=== PATIENT | female | born 1990 | race African-American/Black ===

== ENCOUNTER 2021-01-23 17:27 | Emergency (ER) | payer OTHER, SELFPAY ==
[~2021-01-23 17:27] MED LIST: Iopamidol-370 76% 500 ML 1 ML ONE
[2021-01-23] MEDS ORDERED: Ketorolac Tromethamine 30 MG/ML VIAL ONE (18:38)
[2021-01-23] MEDS ORDERED: Lorazepam 2 MG/ML VIAL ONE (18:38)
[2021-01-23 18:55] LABS: #Basophils 0.1 thou/uL (0.0-0.2); #Monocytes 0.6 thou/uL (0.11-0.59); #Neutrophils 3.1 thou/uL (1.40-6.50); %Eosinophils 0.7 % (0.0-10.0); %Monocytes 9.7 % (0.0-10.0); %Neutrophils 53.6 % (42.0-75.0); Hemoglobin 13.8 g/dL (12.0-16.0); Mean Corpuscular HGB CONC 33.9 g/dL (32.0-36.0); Mean Corpuscular Hemoglobin 28.5 pg (27.0-31.0); Mean Corpuscular Volume 84.2 fL (78.0-98.0); Platelet Count 225 thou/uL (130-400); RBC Distribution Width 11.4 % (11.5-14.5); Red Blood Cell (RBC) Count 4.82 mill/uL (4.20-5.40); White Blood Cell (WBC) Count 5.8 thou/uL (4.8-10.8)
[2021-01-23 19:13] LABS: ALT (SGPT) 22 U/L (8-55); AST (SGOT) 18 U/L (5-34); Albumin 4.1 g/dL (3.5-5.0); Alkaline Phosphatase 70 U/L (40-110); Anion Gap 14 mmol/L (10-20); BUN (Urea Nitrogen) 13 mg/dL (7.0-18.7); Bilirubin, Total 0.3 mg/dL (0.2-1.2); Calc. Creatinine Clearance 0 mL/min (70-130); Calcium 9.4 mg/dL (7.8-10.44); Carbon Dioxide 23 mmol/L (22-29); Chloride 105 mmol/L (98-107); Globulin 3.7 g/dL (2.4-3.5); Glucose 141 mg/dL (70-105); Potassium 3.7 mmol/L (3.5-5.1); Protein, Total 7.8 g/dL (6.0-8.3); Sodium 138 mmol/L (136-145)
[2021-01-23 19:19] LABS: BHCG - Serum Negative (NEGATIVE); Pregs Control Background? CLEAR/WHITE (CLR/WHITE); Pregs Control Bar Appear? YES (CONTROL BAR)
== END 2021-01-23 20:48 | disposition home or self-care (01) ==
LOC: ERS 17:27
DX: M25.562 Pain in left knee (principal); R10.33 Periumbilical pain; V49.40XA Driver injured in collision with unspecified motor vehicles in traffic accident, initial encounter
CPT/HCPCS: 36415; 74177; 80053; 84703; 85025; 93005; 96374; 96375; J1885; J2060; Q9967